=== PATIENT | male | born 1985 | race Two or more races ===

== ENCOUNTER 2018-09-27 07:31 | Inpatient (IN) | payer OTHER, SELFPAY ==
[~2018-09-27] VITALS: Ht 175.3 cm; Wt 77.0 kg
[2018-09-27] MEDS ORDERED: KETOROLAC 30 MG/1 ML ONE (08:15)
[2018-09-27 08:17] LABS: BASOPHILS # (AUTO) 0.03 x10^3/uL (0-0.1); BASOPHILS % (AUTO) 0 % (0-1); EOSINOPHILS # (AUTO) 0.01 x10^3/uL (0-0.4); EOSINOPHILS % (AUTO) 0 % (1-7); LYMPHOCYTES # (AUTO) 1.17 x10^3/uL (1-3.4); LYMPHOCYTES % (AUTO) 8 % (22-44); MD NO; MEAN CORPUSCULAR HEMOGLOBIN 31.1 pg (27.5-34.5); MEAN CORPUSCULAR HGB CONC 33.7 g/dL (33.2-36.2); MEAN CORPUSCULAR VOLUME 92.2 fL (81-97); MEAN PLATELET VOLUME 8.3 fL (7.4-10.4); MONOCYTES # (AUTO) 0.99 x10^3/uL (0.2-0.8); MONOCYTES % (AUTO) 7 % (2-9); NEUTROPHILS # (AUTO) 12.39 x10^3/uL (1.8-6.8); NEUTROPHILS % (AUTO) 85 % (42-75); PLATELET COUNT 245 x10^3/uL (130-400); RED BLOOD COUNT 4.76 x10^6/uL (4.38-5.82); RED CELL DISTRIBUTION WIDTH 12.7 % (9.4-14.8)
[2018-09-27 08:29] LABS: ALANINE AMINOTRANSFERASE 20 U/L (12-78); ALBUMIN 3.9 g/dL (3.4-5.0); ANION GAP 7 mmol/L (5-15); CALCIUM 8.6 mg/dL (8.5-10.1); CHLORIDE 109 mmol/L (98-107); CREATININE 0.84 mg/dL (0.7-1.3)
[2018-09-27] MEDS ORDERED: KETOROLAC 30 MG/1 ML IM ONE (08:30)
[2018-09-27] MEDS ORDERED: KETOROLAC 30 MG/1 ML IVPush ONE (08:30)
[2018-09-27 08:32] LABS: ALKALINE PHOSPHATASE 65 U/L (45-117); BILIRUBIN,TOTAL 1.5 mg/dL (0.2-1.0); TOTAL PROTEIN 7.6 g/dL (6.4-8.2)
[2018-09-27] MEDS ORDERED: CEFTRIAXONE PMX 1GM/50ML 50 ML ONE (10:20)
[2018-09-27] MEDS ORDERED: NS + 20MEQ KCL 1,000 ML IV ONE ×2 (10:21→10:25)
[2018-09-27] MEDS ORDERED: METRONIDAZOLE PMX 500MG/100ML 100 ML ONE (10:29)
[2018-09-27] MEDS ORDERED: CEFTRIAXONE PMX 1GM/50ML 50 ML IV ONE (10:30)
[2018-09-27] MEDS ORDERED: METRONIDAZOLE PMX 500MG/100ML 100 ML IV ONE (10:30)
[2018-09-27] MEDS ORDERED: ONDANSETRON 2MG/ML, 2ML ONE (10:44)
[2018-09-27] MEDS ORDERED: MORPHINE SULFATE 4 MG/ML, 1ML ONE (10:44)
[2018-09-27] MEDS ORDERED: morphine SULFATE 10 MG/ML, 1ML IVPush ONE (11:00)
[2018-09-27] MEDS ORDERED: ONDANSETRON 2MG/ML, 2ML IVPush ONE (11:00)
[2018-09-27] MEDS ORDERED: ONDANSETRON 4 MG TABLET PO PRN (11:30)
[2018-09-27 12:28] VITALS: BP 114/63
[2018-09-27] MEDS: D5%-0.45NACL+KCL 20MEQ 1,000 ML IV SCH ×2 (12:51→18:28)
[2018-09-27] MEDS: morphine SULFATE 10 MG/ML, 1ML IVPush PRN ×4 (12:51→23:11)
[2018-09-27 14:42] VITALS: BP 107/60
[2018-09-27 17:50] LABS: MICROSCOPIC INDICATED
[2018-09-27 18:02] LABS: CULTURE INDICATED? NO
[2018-09-27] MEDS: METRONIDAZOLE PMX 500MG/100ML 100 ML IVPB SCH (18:28)
[2018-09-27 19:16] VITALS: BP 102/59
[2018-09-28] MEDS: morphine SULFATE 10 MG/ML, 1ML IVPush PRN ×5 (01:12→22:22)
[2018-09-28] MEDS: METRONIDAZOLE PMX 500MG/100ML 100 ML IVPB SCH ×3 (02:23→18:08)
[2018-09-28 02:25] VITALS: BP 110/64
[2018-09-28] MEDS: D5%-0.45NACL+KCL 20MEQ 1,000 ML IV SCH ×4 (05:07→23:10)
[2018-09-28 05:37] LABS: BASOPHILS # (AUTO) 0.03 x10^3/uL (0-0.1); BASOPHILS % (AUTO) 0 % (0-1); EOSINOPHILS # (AUTO) 0.04 x10^3/uL (0-0.4); EOSINOPHILS % (AUTO) 0 % (1-7); LYMPHOCYTES # (AUTO) 1.21 x10^3/uL (1-3.4); LYMPHOCYTES % (AUTO) 10 % (22-44); MD NO; MEAN CORPUSCULAR HEMOGLOBIN 31.8 pg (27.5-34.5); MEAN CORPUSCULAR HGB CONC 34.2 g/dL (33.2-36.2); MEAN CORPUSCULAR VOLUME 93.1 fL (81-97); MEAN PLATELET VOLUME 8.2 fL (7.4-10.4); MONOCYTES # (AUTO) 1.24 x10^3/uL (0.2-0.8); MONOCYTES % (AUTO) 10 % (2-9); NEUTROPHILS # (AUTO) 9.99 x10^3/uL (1.8-6.8); NEUTROPHILS % (AUTO) 80 % (42-75); PLATELET COUNT 195 x10^3/uL (130-400); RED BLOOD COUNT 4.04 x10^6/uL (4.38-5.82)
[2018-09-28 06:50] VITALS: BP 102/62
[2018-09-28] MEDS: CEFTRIAXONE 1,000 MG in SODIUM CHLORIDE 0.9% 50 ML IVPB SCH (09:51)
[2018-09-28 13:51] VITALS: BP 111/67
[2018-09-28 19:18] VITALS: BP 119/75
[2018-09-29 01:06] VITALS: BP 95/57
[2018-09-29] MEDS: METRONIDAZOLE PMX 500MG/100ML 100 ML IVPB SCH ×3 (02:41→21:23)
[2018-09-29 05:11] LABS: BASOPHILS # (AUTO) 0.03 x10^3/uL (0-0.1); BASOPHILS % (AUTO) 0 % (0-1); EOSINOPHILS # (AUTO) 0.06 x10^3/uL (0-0.4); EOSINOPHILS % (AUTO) 1 % (1-7); LYMPHOCYTES # (AUTO) 1.18 x10^3/uL (1-3.4); LYMPHOCYTES % (AUTO) 11 % (22-44); MD NO; MEAN CORPUSCULAR HGB CONC 34.3 g/dL (33.2-36.2); MEAN CORPUSCULAR VOLUME 93.3 fL (81-97); MONOCYTES # (AUTO) 1.01 x10^3/uL (0.2-0.8); MONOCYTES % (AUTO) 9 % (2-9); NEUTROPHILS # (AUTO) 8.55 x10^3/uL (1.8-6.8); NEUTROPHILS % (AUTO) 79 % (42-75); PLATELET COUNT 201 x10^3/uL (130-400); RED BLOOD COUNT 3.95 x10^6/uL (4.38-5.82); RED CELL DISTRIBUTION WIDTH 12.8 % (9.4-14.8)
[2018-09-29 07:19] VITALS: BP 113/71
[2018-09-29] MEDS: morphine SULFATE 10 MG/ML, 1ML IVPush PRN ×3 (08:52→21:23)
[2018-09-29] MEDS: D5%-0.45NACL+KCL 20MEQ 1,000 ML IV SCH ×2 (08:52→18:10)
[2018-09-29] MEDS: CEFTRIAXONE 1,000 MG in SODIUM CHLORIDE 0.9% 50 ML IVPB SCH (10:54)
[2018-09-29 14:12] VITALS: BP 112/70
[2018-09-29] MEDS: ACETAMINOPHEN 325 MG TABLET PO PRN (18:10)
[2018-09-29 20:37] VITALS: BP 108/70
[2018-09-30 01:16] VITALS: BP 110/71
[2018-09-30] MEDS: D5%-0.45NACL+KCL 20MEQ 1,000 ML IV SCH ×2 (03:59→12:00)
[2018-09-30] MEDS: morphine SULFATE 10 MG/ML, 1ML IVPush PRN ×2 (05:18→15:11)
[2018-09-30] MEDS: METRONIDAZOLE PMX 500MG/100ML 100 ML IVPB SCH ×3 (05:18→21:36)
[2018-09-30 05:41] LABS: BASOPHILS # (AUTO) 0.04 x10^3/uL (0-0.1); BASOPHILS % (AUTO) 1 % (0-1); EOSINOPHILS # (AUTO) 0.11 x10^3/uL (0-0.4); EOSINOPHILS % (AUTO) 2 % (1-7); LYMPHOCYTES # (AUTO) 1.18 x10^3/uL (1-3.4); LYMPHOCYTES % (AUTO) 16 % (22-44); MD NO; MEAN CORPUSCULAR HEMOGLOBIN 31.5 pg (27.5-34.5); MEAN CORPUSCULAR HGB CONC 33.4 g/dL (33.2-36.2); MEAN CORPUSCULAR VOLUME 94.4 fL (81-97); MEAN PLATELET VOLUME 8.3 fL (7.4-10.4); MONOCYTES # (AUTO) 0.69 x10^3/uL (0.2-0.8); MONOCYTES % (AUTO) 10 % (2-9); NEUTROPHILS % (AUTO) 72 % (42-75); PLATELET COUNT 226 x10^3/uL (130-400); RED BLOOD COUNT 3.91 x10^6/uL (4.38-5.82); RED CELL DISTRIBUTION WIDTH 12.7 % (9.4-14.8)
[2018-09-30 06:51] VITALS: BP 115/70
[2018-09-30] MEDS: CEFTRIAXONE 1,000 MG in SODIUM CHLORIDE 0.9% 50 ML IVPB SCH (10:46)
[2018-09-30 12:23] VITALS: BP 114/71
[2018-09-30 19:06] VITALS: BP 118/74
[2018-10-01] MEDS: D5%-0.45NACL+KCL 20MEQ 1,000 ML IV SCH (00:36)
[2018-10-01 01:05] VITALS: BP_SYST 90; BP_SYST 98; BP_DIAS 56; BP_DIAS 68
[2018-10-01] MEDS: METRONIDAZOLE PMX 500MG/100ML 100 ML IVPB SCH ×3 (05:33→20:43)
[2018-10-01 06:00] LABS: BASOPHILS # (AUTO) 0.03 x10^3/uL (0-0.1); BASOPHILS % (AUTO) 1 % (0-1); EOSINOPHILS # (AUTO) 0.14 x10^3/uL (0-0.4); EOSINOPHILS % (AUTO) 3 % (1-7); LYMPHOCYTES # (AUTO) 1.33 x10^3/uL (1-3.4); LYMPHOCYTES % (AUTO) 28 % (22-44); MD NO; MEAN CORPUSCULAR HEMOGLOBIN 31.7 pg (27.5-34.5); MEAN CORPUSCULAR HGB CONC 34.3 g/dL (33.2-36.2); MEAN CORPUSCULAR VOLUME 92.3 fL (81-97); MEAN PLATELET VOLUME 8.4 fL (7.4-10.4); MONOCYTES # (AUTO) 0.57 x10^3/uL (0.2-0.8); MONOCYTES % (AUTO) 12 % (2-9); NEUTROPHILS # (AUTO) 2.74 x10^3/uL (1.8-6.8); NEUTROPHILS % (AUTO) 57 % (42-75); PLATELET COUNT 267 x10^3/uL (130-400); RED BLOOD COUNT 4.26 x10^6/uL (4.38-5.82); RED CELL DISTRIBUTION WIDTH 12.3 % (9.4-14.8)
[2018-10-01 07:07] VITALS: BP 117/77
[2018-10-01] MEDS ORDERED: CEFTRIAXONE PMX 1GM/50ML 50 ML IVPB SCH (10:00)
[2018-10-01 12:52] VITALS: BP 115/76
[2018-10-01 19:09] VITALS: BP 108/68
[2018-10-02 02:17] VITALS: BP 95/63
[2018-10-02] MEDS: ACETAMINOPHEN 325 MG TABLET PO PRN (03:40)
[2018-10-02] MEDS: METRONIDAZOLE PMX 500MG/100ML 100 ML IVPB SCH (05:09)
[2018-10-02 08:26] VITALS: BP 111/67
== END 2018-10-02 11:11 | disposition home or self-care (01) | DRG 392 ==
LOC: ED 10:07 → EDIP 10:18 → 3NE 11:24
PROVIDERS: ADMIT Surgery; ATTEND Surgery
DX: K57.20 Diverticulitis of large intestine with perforation and abscess without bleeding (principal); Z93.3 Colostomy status; Z90.49 Acquired absence of other specified parts of digestive tract
CPT/HCPCS: 36415; 74176; 80053; 81001; 85025; 96365; 96375; 99285; G0378; J0696; J1885; J2405; J3480; J2270